=== PATIENT | female | born 1990 | race Caucasian/White ===

== ENCOUNTER 2018-07-22 12:12 | Emergency (ER) | payer OTHER ==
[~2018-07-22] VITALS: Ht 157.5 cm; Wt 52.8 kg
[~2018-07-22 12:12] MED LIST: RIVA1TAB PO
--- NOTE | 2018-07-22 12:49 | NUR ---
NA IN LOBBY @ 1212
[2018-07-22 12:53] VITALS: BP 112/80
[2018-07-22 13:26] LABS: HCG UR SG 1.006 (1.003-1.030); MICROSCOPIC AUTO
[2018-07-22 13:27] LABS: CULTURE INDICATED? YES
[2018-07-22] MEDS ORDERED: KETOROLAC 30 MG/1 ML IM ONE (13:30)
[2018-07-22 13:59] LABS: BASOPHILS # (AUTO) 0.03 x10^3/uL (0-0.1); BASOPHILS % (AUTO) 1 % (0-1); EOSINOPHILS % (AUTO) 6 % (1-7); LYMPHOCYTES # (AUTO) 2.12 x10^3/uL (1-3.4); LYMPHOCYTES % (AUTO) 31 % (22-44); MD NO; MEAN CORPUSCULAR HEMOGLOBIN 31.2 pg (27.0-34.8); MEAN CORPUSCULAR HGB CONC 33.7 g/dL (32.4-35.8); MEAN CORPUSCULAR VOLUME 92.4 fL (80-100); MEAN PLATELET VOLUME 8.3 fL (7.4-10.4); MONOCYTES # (AUTO) 0.33 x10^3/uL (0.2-0.8); MONOCYTES % (AUTO) 5 % (2-9); NEUTROPHILS # (AUTO) 3.95 x10^3/uL (1.8-6.8); NEUTROPHILS % (AUTO) 58 % (42-75); PLATELET COUNT 234 x10^3/uL (130-400); RED BLOOD COUNT 4.76 x10^6/uL (3.82-5.3); RED CELL DISTRIBUTION WIDTH 12.5 % (9.6-15.2)
[2018-07-22 14:06] LABS: CHLORIDE 106 mmol/L (98-107)
[2018-07-22 14:16] LABS: ALANINE AMINOTRANSFERASE 32 U/L (12-78); ALBUMIN 4.4 g/dL (3.4-5.0); ALKALINE PHOSPHATASE 52 U/L (45-117); ANION GAP 4 mmol/L (5-15); BILIRUBIN,TOTAL 1.5 mg/dL (0.2-1.0); CALCIUM 9.3 mg/dL (8.5-10.1); CREATININE 1.05 mg/dL (0.55-1.02); TOTAL PROTEIN 8.2 g/dL (6.4-8.2)
--- NOTE | 2018-07-22 15:23 | NUR ---
PT AMBULATORY TO ROOM FROM LOBBY.
[2018-07-22] MEDS ORDERED: KETOROLAC 30 MG/1 ML ONE (15:51)
--- NOTE | 2018-07-22 15:56 | NUR ---
Patient refusing toradol at this time. Expressing desire to leave.
--- NOTE | 2018-07-22 16:13 | NUR ---
Patient/Caregiver given discharge instructions and they have confirmed that they understand the instructions. Patient ambulatory with steady gait.
== END 2018-07-22 16:14 | disposition home or self-care (01) ==
LOC: ED 15:50
DX: R10.9 Unspecified abdominal pain (principal)
CPT/HCPCS: 36415; 76770; 80053; 81001; 81025; 85025; 87077; 87086; 87186; 99284